=== PATIENT | female | born 1960 | race Two or more races ===

== ENCOUNTER 2021-12-22 19:08 | Emergency (ER) | payer OTHER ==
[~2021-12-22] VITALS: Ht 165.1 cm; Wt 61.2 kg
[2021-12-22] MEDS ORDERED: ONDANSETRON 4 MG/2 ML VIAL IV ONE (19:30)
[2021-12-22] MEDS ORDERED: MORPHINE SULFATE 2 MG/1 ML DISP.SYRIN IV ONE (19:30)
[2021-12-22 19:45] LABS: HEMATOCRIT 32.8 % (31.2-41.9); MEAN CORPUSCULAR HEMOGLOBIN 29.5 uug (24.7-32.8); MEAN CORPUSCULAR VOLUME 88.6 fL (75.5-95.3); PLATELET COUNT (AUTO) 580 K/uL (179-408)
[2021-12-22 19:58] LABS: CARBON DIOXIDE 21 mmol/L (21-32); CHLORIDE 102 mmol/L (98-107); CREATININE 0.9 mg/dL (0.6-1.3); GLUCOSE 116 mg/dL (74-106); POTASSIUM 4.4 mmol/L (3.5-5.1); UREA NITROGEN, BLOOD 35 mg/dL (7-18)
[2021-12-22 20:15] LABS: ALANINE AMINOTRANSFERASE 23 U/L (14-59); ALKALINE PHOSPHATASE 149 U/L (50-136); ASPARTATE AMINOTRANSFERASE 32 U/L (15-37); BILIRUBIN,DIRECT 0.2 mg/dL (0.0-0.2); BILIRUBIN,TOTAL 0.5 mg/dL (0.2-1.0); TOTAL PROTEIN, SERUM 7.9 g/dL (6.4-8.2)
[2021-12-22] MEDS ORDERED: SWABABLE VALVE TRANSFER SET EA MC ONE (20:28)
[2021-12-22] MEDS ORDERED: IV NORMAL SALINE 250 ML IV ONE (20:29)
[2021-12-22] MEDS ORDERED: IOHEXOL 350 100 ML INFUS..BTL ONE (20:29)
[2021-12-22] MEDS ORDERED: IV NORMAL SALINE 1000 ML BAG IV ONE (20:30)
--- NOTE | 2021-12-22 20:34 | NUR ---
Patient does not wish to proceed with medical care recommended by Dr. Cintron ). Patient given information related to possible complications, up to and including , which could occur as a result of leaving the hospital at this time. Patient verbalizes understanding of risks involved due to leaving against medical advice. Patient has signed AMA form. Patient taking home by patient daughter.
== END 2021-12-22 21:49 | disposition left against medical advice (07) ==
LOC: ER 19:10
DX: R07.9 Chest pain, unspecified (principal); C34.90 Malignant neoplasm of unspecified part of unspecified bronchus or lung; R06.02 Shortness of breath; Z53.29 Procedure and treatment not carried out because of patient's decision for other reasons; R00.0 Tachycardia, unspecified; R79.1 Abnormal coagulation profile; J90 Pleural effusion, not elsewhere classified
CPT/HCPCS: 36415; 71045; 84484; 85025; 85730; 93005; A4663; Q9967